=== PATIENT | female | born 1965 | race Caucasian/White ===

== ENCOUNTER → 2016-11-20 | Outpatient (CLI) | payer OTHER | LOC: MC.RAD 09:51 | DX: Z12.31 Encounter for screening mammogram for malignant neoplasm of breast (principal) ==

== ENCOUNTER → 2017-07-23 | Outpatient (CLI) | payer OTHER ==
[2017-07-29 09:05] LABS: ALTERNARIA TENUIS IgE <0.05 IU/mL (<0.05); ALTERNARIA TENUIS IgE CLASS Negative (()); BERMUDA GRASS IGE CLASS Negative (()); BOX ELDER-MAPLE IgE <0.05 IU/mL (<0.05); BOX ELDER/MAPLE IgE CLASS Negative (()); CAT EPITHELIUM IGE CLASS Negative (()); CLASS INTERPRETATION GUIDE IU/mL (()); COCKROACH CLASS Negative (()); COTTONWOOD IGE CLASS Negative (()); DOG DANDER IGE CLASS Negative (()); DUST MITES IGE (D.F.) <0.05 IU/mL (<0.05); DUST MITES IGE (D.P.) <0.05 IU/mL (<0.05); DUST MITES IGE D.F. CLASS Negative (()); DUST MITES IGE D.P. CLASS Negative (()); FIREBUSH CLASS Negative (()); OAK IGE <0.05 IU/mL (<0.05); RED TOP IGE CLASS Negative (()); RED TOP IgE <0.05 IU/mL (<0.05); ROUGH MARSH ELDER IGE CLASS Negative (()); RUSSIAN THISTLE CLASS Negative (()); SHORT RAGWEED IGE CLASS Negative (())
== END ==
LOC: COL.LAB 13:44
PROVIDERS: Allergy & Immunology
DX: J30.0 Vasomotor rhinitis (principal)

== ENCOUNTER 2018-04-11 08:40 | Day surgery (SDC) | payer OTHER ==
[~2018-04-11] VITALS: Ht 165.1 cm; Wt 104.5 kg
[2018-04-11] MEDS ORDERED: ZYRTEC 10MG10 MG PO (10:00)
[2018-04-11 13:09] VITALS: BP 131/72; PULSE 65; TEMP 98
[2018-04-11 15:39] VITALS: BP 121/78; PULSE 89
[2018-04-11 15:54] VITALS: BP 135/87; PULSE 78
[2018-04-11] MEDS ORDERED: NORCO 325 MG-7.1 TAB PO (16:07)
[2018-04-11 16:09] VITALS: BP 141/93; PULSE 79
[2018-04-11] MEDS ORDERED: ROXICODONE 55 MG/TAB PO (16:09)
[2018-04-11 16:24] VITALS: BP 133/84; PULSE 72
== END 2018-04-11 16:55 | disposition home or self-care (01) ==
LOC: COL.ER 08:40 → SDCO 13:37
DX: S52.592A Other fractures of lower end of left radius, initial encounter for closed fracture (principal); W01.0XXA Fall on same level from slipping, tripping and stumbling without subsequent striking against object, initial encounter; Y92.009 Unspecified place in unspecified non-institutional (private) residence as the place of occurrence of the external cause; Z83.3 Family history of diabetes mellitus
CPT/HCPCS: C1713; J0690; J1100; J1170; J2250; J2405; J2704; J2795; J3010; J7030

== ENCOUNTER 2018-04-21 12:40 | Outpatient (CLI) | payer OTHER ==
[~2018-04-21 12:40] MED LIST: NORCO 325 MG-7.1 TAB PO; ROXICODONE 55 MG/TAB PO; ZYRTEC 10MG10 MG PO
[2018-04-21 13:00] VITALS: BP 136/91; PULSE 81
[2018-04-21 13:05] VITALS: BP 136/91; PULSE 81
[2018-04-21 13:21] LABS: HEMATOCRIT 45.7 % (37.0-47.0); MEAN CELL VOLUME 93 fl (80.0-100.0); MEAN CORPUSCULAR HEMOGLOBIN 33 pg (27.0-31.0); MEAN CORPUSCULAR HGB CONC 35 g/dl (33.0-37.0); MEAN PLATELET VOLUME 9.2 fl (7.4-10.4); PLATELET COUNT 258 K/mm3 (130-400); RED BLOOD COUNT 4.91 M/mm3 (4.10-5.30)
[2018-04-21 13:33] LABS: ALBUMIN 4.5 gm/dL (3.5-5.0); BILIRUBIN,TOTAL 1.2 mg/dL (0.0-1.0); CALCIUM 9.9 mg/dL (8.4-10.2); CREATININE, serum 0.99 mg/dL (0.52-1.25); TOTAL PROTEIN 8.4 gm/dL (6.4-8.2)
== END 2018-04-21 17:20 | disposition home or self-care (01) ==
LOC: EUO 12:40
PROVIDERS: Family Medicine
DX: K59.00 Constipation, unspecified (principal)
CPT/HCPCS: J7030

== ENCOUNTER 2018-06-19 10:00 | Outpatient (RCR) | payer OTHER | END 2018-07-22 | disposition home or self-care (01) | LOC: WSOT | DX: S52.502D Unspecified fracture of the lower end of left radius, subsequent encounter for closed fracture with routine healing (principal); W18.31XD Fall on same level due to stepping on an object, subsequent encounter; Y93.01 Activity, walking, marching and hiking; Y92.828 Other wilderness area as the place of occurrence of the external cause ==

== ENCOUNTER → 2018-08-27 | Outpatient (CLI) | payer OTHER | LOC: MC.RAD 10:28 | DX: Z12.31 Encounter for screening mammogram for malignant neoplasm of breast (principal) ==

== ENCOUNTER 2018-10-21 07:06 | Day surgery (SDC) | payer OTHER ==
[~2018-10-21] VITALS: Ht 165.1 cm; Wt 104.0 kg
[2018-10-21] MEDS ORDERED: SINGULAIR 110 MG/TAB PO (07:32)
[2018-10-21] MEDS ORDERED: FLONASEALLERGY NS (07:32)
[2018-10-21 07:34] VITALS: BP 138/87; PULSE 96; TEMP 97.2
[2018-10-21 09:10] VITALS: BP 115/73; PULSE 95; TEMP 97.9
[2018-10-21 09:25] VITALS: BP 119/84; PULSE 100
[2018-10-21 09:40] VITALS: BP 115/77; PULSE 87
== END 2018-10-21 10:00 | disposition home or self-care (01) ==
LOC: SDCO 07:06
DX: Z12.11 Encounter for screening for malignant neoplasm of colon (principal); D12.0 Benign neoplasm of cecum; K57.30 Diverticulosis of large intestine without perforation or abscess without bleeding; K64.4 Residual hemorrhoidal skin tags; Z79.899 Other long term (current) drug therapy
CPT/HCPCS: J2250; J3010; J7030

== ENCOUNTER 2019-07-22 09:00 | Outpatient (RCR) | payer OTHER ==
[~2019-07-22 09:00] MED LIST changes: +FLONASEALLERGY NS; +SINGULAIR 110 MG/TAB PO
== END 2019-09-22 ==
LOC: WSOT
DX: M25.532 Pain in left wrist (principal)

== ENCOUNTER → 2019-09-28 | Outpatient (CLI) | payer OTHER | LOC: MC.RAD 10:18 | DX: Z12.31 Encounter for screening mammogram for malignant neoplasm of breast (principal); N63.10 Unspecified lump in the right breast, unspecified quadrant; N63.20 Unspecified lump in the left breast, unspecified quadrant ==

== ENCOUNTER → 2020-10-27 | Outpatient (CLI) | payer OTHER | LOC: MC.RAD 09:30 | DX: Z12.31 Encounter for screening mammogram for malignant neoplasm of breast (principal) ==

== ENCOUNTER → 2021-12-21 | Outpatient (CLI) | payer OTHER | LOC: MC.RAD 09:03 | DX: Z12.31 Encounter for screening mammogram for malignant neoplasm of breast (principal); N64.89 Other specified disorders of breast ==

== ENCOUNTER → 2021-12-25 | Outpatient (CLI) | payer OTHER | LOC: MC.RAD 14:50 | DX: N60.01 Solitary cyst of right breast (principal) ==

== ENCOUNTER → 2021-12-27 | Outpatient (CLI) | payer OTHER ==
[2021-12-27 09:20] LABS: BASO # 0.1 K/mm3 (0.0-0.2); EOS # 0.2 K/mm3 (0.0-0.7); EOS % 3.3 % (0.0-4.0); GRAN # 2.8 K/mm3 (1.4-6.5); GRAN % 54.6 % (42.2-75.2); HEMATOCRIT 43.5 % (37.0-47.0); HEMOGLOBIN 15.7 g/dl (12.5-16.0); LYMPH # 1.8 K/mm3 (1.2-3.4); LYMPH % 35.6 % (20.0-51.0); MEAN CELL VOLUME 91 fl (80.0-100.0); MEAN CORPUSCULAR HEMOGLOBIN 33 pg (27-31); MEAN CORPUSCULAR HGB CONC 36 g/dl (33.0-37.0); MEAN PLATELET VOLUME 10.4 fl (7.4-10.4); MONO # 0.3 K/mm3 (0.1-0.6); MONO % 5.1 % (1.7-9.3); PLATELET COUNT 145 K/mm3 (130-400); REDCELL DISTRIBUTION WIDTH-CV 11.9 % (11.5-14.5)
[2021-12-28 05:19] LABS: IMMUNOGLOBULIN G 829 mg/dL (552-1631)
[2021-12-28 05:20] LABS: IMMUNOGLOBULIN A 170 mg/dL (65-421); IMMUNOGLOBULIN M, QUANTITATIVE 103 mg/dL (33-293)
== END ==
LOC: COL.RAD 08:23 → COL.LAB 08:23 → COL.RAD 08:30
DX: J32.9 Chronic sinusitis, unspecified (principal); J31.0 Chronic rhinitis; J34.2 Deviated nasal septum

== ENCOUNTER 2022-01-09 08:12 | Day surgery (SDC) | payer OTHER ==
[~2022-01-09] VITALS: Ht 165.1 cm; Wt 95.5 kg
[2022-01-09 09:44] VITALS: BP 137/98; PULSE 89; TEMP 97.7
[2022-01-09 10:55] VITALS: BP 122/85; PULSE 98
--- NOTE | 2022-01-09 10:55 | NUR ---
Patient returns to bay 4 per cart and transfers from cart to recliner with one person assist. IV fluids infusing and site is free of redness. Temp 97.8 and room air sats 95%. Call light in reach and spouse in room. Drinking water and eating snack. Denies abdominal pain or nausea.
[2022-01-09 11:10] VITALS: BP 113/95; PULSE 87
--- NOTE | 2022-01-09 11:10 | NUR ---
Dr. Botello in the room and all questions answered.
--- NOTE | 2022-01-09 11:15 | NUR ---
IV discontinued and site is free of redness or swelling. Patient is dresses self.
--- NOTE | 2022-01-09 11:25 | NUR ---
Dismissal instructions given and voices understanding of these.
[2022-01-09 11:28] VITALS: BP 122/85; PULSE 98
--- NOTE | 2022-01-09 11:28 | NUR ---
Patient dismissed to home driven by spouse and taken to vehicle per wheelchair and assisted into car with dismissal instructions in hand.
== END 2022-01-09 11:28 | disposition home or self-care (01) ==
LOC: SDCO 08:12
DX: Z12.11 Encounter for screening for malignant neoplasm of colon (principal); J30.9 Allergic rhinitis, unspecified; M19.90 Unspecified osteoarthritis, unspecified site; K64.0 First degree hemorrhoids; Z79.890 Hormone replacement therapy; Z79.899 Other long term (current) drug therapy; Z86.010 Personal history of colon polyps
CPT/HCPCS: J2704; J7120

== ENCOUNTER 2022-03-13 10:15 | Outpatient (RCR) | payer OTHER | END 2022-03-17 | disposition home or self-care (01) | LOC: PT.GENESIS | DX: M25.512 Pain in left shoulder (principal) ==

== ENCOUNTER → 2022-03-22 | Outpatient (CLI) | payer OTHER | LOC: COL.RAD 12:36 | DX: M71.21 Synovial cyst of popliteal space [Baker], right knee (principal) ==

== ENCOUNTER 2022-04-12 10:45 | Outpatient (RCR) | payer OTHER | END 2022-04-17 | disposition home or self-care (01) | LOC: PT.GENESIS | DX: M22.2X1 Patellofemoral disorders, right knee (principal); M71.21 Synovial cyst of popliteal space [Baker], right knee ==

== ENCOUNTER 2022-05-16 08:45 | Outpatient (RCR) | payer OTHER | END 2022-05-17 | LOC: PT.GENESIS | DX: M22.2X9 Patellofemoral disorders, unspecified knee (principal); M71.21 Synovial cyst of popliteal space [Baker], right knee ==

== ENCOUNTER 2022-06-04 10:07 | Outpatient (RCR) | payer OTHER | END 2022-06-04 10:08 | LOC: PT.GENESIS 10:07 | DX: M71.21 Synovial cyst of popliteal space [Baker], right knee (principal) ==

== ENCOUNTER 2022-06-14 10:45 | Outpatient (RCR) | payer OTHER | END 2022-06-17 | disposition home or self-care (01) | LOC: PT.GENESIS | DX: M25.512 Pain in left shoulder (principal); M22.2X1 Patellofemoral disorders, right knee ==

== ENCOUNTER → 2022-07-09 | Outpatient (CLI) | payer OTHER | LOC: MC.RAD 08:49 | DX: N63.11 Unspecified lump in the right breast, upper outer quadrant (principal) ==

== ENCOUNTER → 2022-07-18 | Outpatient (RCR) | payer OTHER | END | disposition still patient (30) | LOC: PT.GENESIS | DX: M25.512 Pain in left shoulder (principal); M22.2X1 Patellofemoral disorders, right knee ==

== ENCOUNTER 2022-09-11 11:15 | Outpatient (RCR) | payer OTHER | END 2022-09-17 | disposition home or self-care (01) | LOC: PT.GENESIS | DX: M25.512 Pain in left shoulder (principal) ==

== ENCOUNTER 2022-11-16 05:30 | Day surgery (SDC) | payer OTHER ==
[~2022-11-16] VITALS: Ht 165.1 cm; Wt 96.4 kg
[2022-11-16 06:34] VITALS: BP 159/105; PULSE 89; TEMP 97.3
[2022-11-16 10:00] VITALS: BP 148/81; PULSE 88; TEMP 96.9
[2022-11-16 10:15] VITALS: BP 153/85; PULSE 96
[2022-11-16 10:30] VITALS: BP 130/71; PULSE 96
[2022-11-16 10:45] VITALS: BP 133/82; PULSE 92
[2022-11-16 11:00] VITALS: BP 128/75; PULSE 96
--- NOTE | 2022-11-16 11:10 | NUR ---
1000 RETURNS TO ROOM 8 PER CART. DROWSY, AROUSES EASILY. RESP UNLABORED. O2 AT 2L/NC. VITAL SIGNS OBTAINED. HOB ELEVATED 40 DEGREES. BULKY DRESSING LEFT SHOULDER, CLEAN DRY AND INTACT. ICE PACK IN PLACE. SLING/IMMOBILIZER LEFT UPPER EXTREMITY IN PLACE. MOVES FINGERS LEFT HAND. REPORTS SENSATION BUT DENIES PAIN. FINGERS WARM, PINK, BRISK CAP REFILL. CALL LIGHT AT SIDE. IN ROOM. 1010 REPOSITIONED ON CART. PATIENT WITH NAUSEA WITH MOVEMENT. NO EMESIS. 1020 PATIENT DENIES NAUSEA AT THIS TIME. TOLERATES PO WATER AND SALTINE CRACKERS. 1030 DISCHARGE INSTRUCTIONS REVIEWED. PATIENT AND VERBALIZE UNDERSTANDING. COPY PROVIDED IN DISCHARGE FOLDER. 1100 CONVERSES WITH . NO CHANGE 1110 SITS ON EDGE OF CART, THEN AMBULATES TO BATHROOM WITH STANDBY ASSIST. VOIDS WITHOUT DIFFICULTY. DENIES NAUSEA WITH ACTIVITY. EXPRESSES COMFORT 1115 DRESSES WITH ASSISTANCE OF NURSE AND .
== END 2022-11-16 11:25 ==
LOC: SDCO 05:30
DX: M75.112 Incomplete rotator cuff tear or rupture of left shoulder, not specified as traumatic (principal); S43.432A Superior glenoid labrum lesion of left shoulder, initial encounter; S46.112A Strain of muscle, fascia and tendon of long head of biceps, left arm, initial encounter; G89.18 Other acute postprocedural pain; G47.33 Obstructive sleep apnea (adult) (pediatric); Z99.89 Dependence on other enabling machines and devices; X58.XXXA Exposure to other specified factors, initial encounter
CPT/HCPCS: A4619; C1713; J0690; J1100; J1885; J2250; J2405; J2550; J2704; J2795; J3010; J7120

== ENCOUNTER 2022-12-17 09:00 | Outpatient (RCR) | payer OTHER | END 2022-12-18 | disposition home or self-care (01) | LOC: PT.GENESIS | DX: Z98.890 Other specified postprocedural states (principal) | CPT/HCPCS: G0283-GP ==

== ENCOUNTER 2023-01-14 14:45 | Outpatient (RCR) | payer OTHER | END 2023-01-15 | disposition home or self-care (01) | LOC: PT.GENESIS | DX: M25.512 Pain in left shoulder (principal); M24.112 Other articular cartilage disorders, left shoulder; M75.112 Incomplete rotator cuff tear or rupture of left shoulder, not specified as traumatic | CPT/HCPCS: G0283-GP ==

== ENCOUNTER 2023-02-14 09:45 | Outpatient (RCR) | payer OTHER | END 2023-02-15 | disposition home or self-care (01) | LOC: PT.GENESIS | DX: Z98.890 Other specified postprocedural states (principal) ==

== ENCOUNTER 2023-03-14 10:30 | Outpatient (RCR) | payer OTHER | END 2023-03-17 | disposition home or self-care (01) | LOC: PT.GENESIS | DX: Z98.890 Other specified postprocedural states (principal) ==